=== PATIENT | male | born 1950 | race Caucasian/White ===

== ENCOUNTER 2019-04-24 10:54 | Emergency (ER) | payer MEDICARE, BC ==
[2019-04-24 11:20] VITALS: BP 134/90; PULSE 72
--- NOTE | 2019-04-24 11:43 | EDM.PDOC ---
ED HPI GENERAL MEDICAL PROBLEM - General Chief Complaint: Cardiovascular Problem Stated Complaint: CHEST PAIN Time Seen by Provider: 04/24/19 11:18 Source of Information: Reports: Patient History Limitations: Reports: No Limitations - History of Present Illness INITIAL COMMENTS - FREE TEXT/NARRATIVE: 68 yo male presents to ER with palpitations. He does have hx of afib. 2-3 times per day for ~2-5 minutes he develops a fluttery heavy sensation in his chest. one time last week his daughter listened to his heart and it was irregular. He did take his pulse at that time and it was 165. He denies lightheadedness, nausea or SOB during these events. These events usually occur after he is resting post increase activity. He does take 81 mg asa daily. Denies fever, chills, or headache. - Related Data Allergies Allergy/AdvReac Type Severity Reaction Status Date / Time No Known Allergies Allergy Verified 04/24/19 11:16 Home Meds: Home Meds Aspirin [Ecotrin] 81 mg PO DAILY 04/02/16 [History] Simvastatin 20 mg PO BEDTIME 04/02/16 [History] diphenhydrAMINE HCl [Diphenhydramine HCl] 25 mg PO BEDTIME 04/02/16 [History] Ascorbic Acid [Vitamin C] 500 mg PO DAILY 04/06/16 [History] Omeprazole Magnesium [Prilosec Otc] 20 mg PO BEDTIME 04/24/19 [History] Past Medical History HEENT History: Reports: Impaired Vision Cardiovascular History: Reports: Afib, High Cholesterol - Infectious Disease History Infectious Disease History: Reports: Chicken Pox, Measles - Past Surgical History GI Surgical History: Reports: Colonoscopy, Hernia, Inguinal, Polypectomy Musculoskeletal Surgical History: Reports: Shoulder Surgery Social & Family History - Tobacco Use Smoking Status *Q: Never Smoker - Caffeine Use Caffeine Use: Reports: Coffee - Recreational Drug Use Recreational Drug Use: No ED ROS GENERAL - Review of Systems Review Of Systems: See Below Constitutional: Denies: Fever, Chills, Fatigue HEENT: Denies: Sinus Problem Respiratory: Denies: Shortness of Breath, Wheezing Cardiovascular: Reports: Palpitations. Denies: Chest Pain GI/Abdominal: Denies: Abdominal Pain Skin: Denies: Rash Neurological: Denies: Confusion, Dizziness, Headache ED EXAM, GENERAL - Physical Exam Exam: See Below Exam Limited By: No Limitations General Appearance: Alert, WD/WN, No Apparent Distress Head: Atraumatic, Normocephalic Neck: Normal Inspection, Supple, Non-Tender, Full Range of Motion. No: Lymphadenopathy (R), Lymphadenopathy (L) Respiratory/Chest: No Respiratory Distress, Lungs Clear, Normal Breath Sounds, No Accessory Muscle Use, Chest Non-Tender. No: Crackles, Rhonchi, Wheezing Cardiovascular: Normal Peripheral Pulses, Regular Rate, Rhythm, No Edema, No Gallop, No Murmur, No Rub GI/Abdominal: Normal Bowel Sounds, Soft, Non-Tender, No Organomegaly Neurological: Alert, Oriented Psychiatric: Normal Affect, Normal Mood Skin Exam: Warm, Dry, Intact, No Rash Course - Vital Signs Last Recorded V/S: Last Vital Signs Temp 36.4 C 04/24/19 11:21 Pulse 72 04/24/19 11:21 Resp 10 L 04/24/19 11:21 BP 134/90 04/24/19 11:21 Pulse Ox 96 04/24/19 11:21 - Orders/Labs/Meds Labs: Laboratory Tests 04/24/19 04/24/19 04/24/19 Range/Units 11:42 11:42 11:42 WBC 4.4 L (4.5-11.0) K/uL RBC 4.78 (4.30-5.90) M/uL Hgb 15.1 H (12.0-15.0) g/dL Hct 45.9 (40.0-54.0) % MCV 96 (80-98) fL MCH 32 H (27-31) pg MCHC 33 (32-36) % Plt Count 218 (150-400) K/uL Neut % (Auto) 55 (36-66) % Lymph % (Auto) 31 (24-44) % [place] % (Auto) 12 H (2-6) % Eos % (Auto) 2 (2-4) % Baso % (Auto) 1 (0-1) % Sodium 140 (140-148) mmol/L Potassium 4.0 (3.6-5.2) mmol/L Chloride 105 (100-108) mmol/L Carbon Dioxide 25 (21-32) mmol/L Anion Gap 9.8 (5.0-14.0) mmol/L BUN 15 (7-18) mg/dL Creatinine 0.8 (0.8-1.3) mg/dL Est Cr Clr Drug Dosing 96.74 mL/min Estimated GFR (MDRD) > 60 (>60) Glucose 103 (74-106) mg/dL Calcium 8.5 (8.5-10.1) mg/dL Total Bilirubin 0.2 (0.2-1.0) mg/dL AST 16 (15-37) U/L ALT 30 (12-78) U/L Alkaline Phosphatase 59 (46-116) U/L Troponin I 0.024 (0.000-0.056) ng/mL Total Protein 6.8 (6.4-8.2) g/dL Albumin 3.5 (3.4-5.0) g/dL Globulin 3.3 (2.3-3.5) g/dL Albumin/Globulin Ratio 1.1 L (1.2-2.2) TSH, Ultra Sensitive 2.489 (0.358-3.740) uIU/mL - Re-Assessments/Exams Free Text/Narrative Re-Assessment/Exam: 04/24/19 12:53 mildly elevated HGB could be indicative of mild dehydration all other labs normal. Discussed that these episodes are more then likely brief afib episodes and will start a rate control medication. He is to follow-up with his primary care provider for rhythm monitoring Departure - Departure Time of Disposition: 12:43 Disposition: Home, Self-Care 01 Condition: Good Clinical Impression: Atrial fibrillation Qualifiers: Atrial fibrillation type: paroxysmal Qualified Code(s): I48.0 - Paroxysmal atrial fibrillation Instructions: Atrial Fibrillation, [id number] Referrals: Donaldo Rodriguez PA [Primary Care Provider] - Forms: ED Department Discharge Additional Instructions: Increase daily dose of aspirin to 325 mg start rhythm control medication fo Metoprol daily during the initiation of this medication it is very important that you maintain good hydration with drinking 1.5 liters of fluid daily follow-up with your primary care provider this week
== END 2019-04-24 13:04 | disposition home or self-care (01) ==
LOC: JP.ED 10:54
DX: I48.0 Paroxysmal atrial fibrillation (principal); Z79.82 Long term (current) use of aspirin; Z79.899 Other long term (current) drug therapy
CPT/HCPCS: 36415; 80053; 84443; 84484; 85025; 99284

== ENCOUNTER 2021-03-24 09:09 | Emergency (ER) | payer MEDICARE, BC ==
--- NOTE | 2021-03-24 09:56 | EDM.PDOC ---
ED HPI GENERAL MEDICAL PROBLEM - General Chief Complaint: General Stated Complaint: HEAVY CHEST Time Seen by Provider: 03/24/21 09:47 Source of Information: Reports: Patient, RN Notes Reviewed History Limitations: Reports: No Limitations - History of Present Illness INITIAL COMMENTS - FREE TEXT/NARRATIVE: 70-year-old gentleman presents emergency department day complaint of chest heaviness, he states is been ongoing for the last month or so he has noticed an increase in frequency couple times per day describes some heaviness in the center of his chest with some shortness of breath no nausea no diaphoresis he has no known cardiac disease he has a very remote history of tobacco use underwent stress test November 2019 exercise and myocardial perfusion which showed no abnormality. He states he is chest pain-free at this time did have a bout of chest heaviness yesterday. Denies Pain Score (Numeric/FACES): 0 - Related Data Allergies Allergy/AdvReac Type Severity Reaction Status Date / Time No Known Allergies Allergy Verified 03/24/21 09:42 Home Meds: Home Meds Aspirin [Ecotrin] 325 mg PO DAILY 04/02/16 [History] Simvastatin 20 mg PO BEDTIME 04/02/16 [History] Ascorbic Acid [Vitamin C] 2 tab PO DAILY 04/06/16 [History] Metoprolol Succinate 1 tab PO DAILY 11/10/19 [History] traZODone HCl [Trazodone HCl] 1 tab PO BEDTIME PRN 11/10/19 [History] Past Medical History HEENT History: Reports: Impaired Vision Cardiovascular History: Reports: Afib (Paroxysmal), High Cholesterol Oncologic (Cancer) History: Reports: Other (See Below) Other Oncologic History: skin CA - Infectious Disease History Infectious Disease History: Reports: Chicken Pox, Measles - Past Surgical History GI Surgical History: Reports: Colonoscopy, Hernia, Inguinal, Polypectomy Musculoskeletal Surgical History: Reports: Shoulder Surgery Dermatological Surgical History: Reports: Skin Biopsy Social & Family History - Tobacco Use Tobacco Use Status *Q: Never Tobacco User Second Hand Smoke Exposure: No - Caffeine Use Caffeine Use: Reports: Coffee, Soda - Alcohol Use Days Per Week of Alcohol Use: 0 - Recreational Drug Use Recreational Drug Use: Yes ED ROS GENERAL - Review of Systems Review Of Systems: See Below Constitutional: Reports: No Symptoms HEENT: Reports: No Symptoms Respiratory: Reports: Shortness of Breath Cardiovascular: Reports: Chest Pain GI/Abdominal: Reports: No Symptoms ED EXAM, GENERAL - Physical Exam Exam: See Below Exam Limited By: No Limitations General Appearance: Alert, WD/WN, No Apparent Distress Respiratory/Chest: No Respiratory Distress, Lungs Clear, Normal Breath Sounds, No Accessory Muscle Use, Chest Non-Tender Cardiovascular: Regular Rate, Rhythm, No Murmur GI/Abdominal: Soft, Non-Tender Extremities: No Pedal Edema #2 Interpretation EKG Date: 03/24/21 Time: 09:56 Rhythm: NSR [place]: Normal P-Wave: Present QRS: RBBB ST-T: Normal QT: Normal Comparison: No Change Course - Vital Signs Last Recorded V/S: Last Vital Signs Temp 98.2 F 03/24/21 09:47 Pulse 55 L 03/24/21 09:47 Resp 16 03/24/21 09:47 BP 115/73 03/24/21 09:47 Pulse Ox 96 03/24/21 09:47 - Orders/Labs/Meds Orders: Active Orders 24 hr Category Date Time Status Cardiac Monitoring [RC] .As Directed Care 03/24/21 10:26 Active EKG Documentation Completion [RC] ASDIRECTED Care 03/24/21 10:27 Active EKG 12 Lead [EK] Stat Ther 03/24/21 10:27 Ordered Labs: Laboratory Tests 03/24/21 03/24/21 Range/Units 10:37 10:37 WBC 3.4 L (4.5-11.0) K/uL RBC 4.49 (4.30-5.90) M/uL Hgb 14.7 (12.0-15.0) g/dL Hct 43.5 (40.0-54.0) % MCV 97 (80-98) fL MCH 33 H (27-31) pg MCHC 34 (32-36) % Plt Count 208 (150-400) K/uL Neut % (Auto) 56.8 (36-66) % Lymph % (Auto) 27.5 (24-44) % [place] % (Auto) 11.8 H (2-6) % Eos % (Auto) 2.4 (2-4) % Baso % (Auto) 1.5 H (0-1) % Sodium 138 L (140-148) mmol/L Potassium 4.4 (3.6-5.2) mmol/L Chloride 103 (100-108) mmol/L Carbon Dioxide 26 (21-32) mmol/L Anion Gap 13.4 (5.0-14.0) mmol/L BUN 19 H (7-18) mg/dL Creatinine 1.0 (0.8-1.3) mg/dL Est Cr Clr Drug Dosing 75.30 mL/min Estimated GFR (MDRD) > 60 (>60) Glucose 99 (74-106) mg/dL Calcium 8.6 (8.5-10.1) mg/dL Total Bilirubin 0.3 (0.2-1.0) mg/dL AST 18 (15-37) U/L ALT 33 (12-78) U/L Alkaline Phosphatase 59 (46-116) U/L Troponin I < 0.017 (0.000-0.056) ng/mL Total Protein 6.4 (6.4-8.2) g/dL Albumin 3.5 (3.4-5.0) g/dL Globulin 2.9 (2.3-3.5) g/dL Albumin/Globulin Ratio 1.2 (1.2-2.2) Departure - Departure Time of Disposition: 11:53 Disposition: Home, Self-Care 01 Condition: Fair Clinical Impression: Atypical chest pain - Discharge Information Instructions: Nonspecific Chest Pain, Adult, [id number] Referrals: Ashlie Zamudio MD [Primary Care Provider] - Forms: ED Department Discharge Additional Instructions: Please follow-up with your primary care provider in the next 3 to 5 days for reevaluation, call return to the emergency department worsening of symptoms Sepsis Event Note (ED) - Evaluation Sepsis Screening Result: No Definite Risk - Focused Exam Vital Signs: Vital Signs Temp Pulse Resp BP Pulse Ox 03/24/21 09:47 98.2 F 55 L 16 115/73 96 03/24/21 09:38 98.2 F 55 L 16 115/73 96 - My Orders Last 24 Hours: My Active Orders 03/24/21 10:26 Cardiac Monitoring [RC] .As Directed 03/24/21 10:27 EKG Documentation Completion [RC] ASDIRECTED EKG 12 Lead [EK] Stat - Assessment/Plan Last 24 Hours: My Active Orders 03/24/21 10:26 Cardiac Monitoring [RC] .As Directed 03/24/21 10:27 EKG Documentation Completion [RC] ASDIRECTED EKG 12 Lead [EK] Stat Plan: Assessment Acuity = acute Site and laterality = atypical chest pain Etiology = unknown Manifestations = none Location of injury = Home Lab values = CBC, CMP, troponin all within normal limits EKG demonstrates a right bundle branch block however this is unchanged from prior EKG chest x-ray shows no acute process Plan I did discuss with results with him as well as discussed his recent stress test that he had November 2019 which was unremarkable. I have asked him to follow-up with his primary care at which time to review the results and then decide whether a visit cardiology would be more beneficial or repeat stress test would be more beneficial This note was dictated using [employer] voice recognition software please call with any questions on syntax or grammar.
--- NOTE | 2021-03-24 11:49 | CR ---
CHEST: 2 view CLINICAL HISTORY:Chest pain COMPARISON:None FINDINGS: The heart size, pulmonary vascularity and hilar structures are normal. No infiltrate effusion or pneumothorax is seen. IMPRESSION: No acute cardiopulmonary process.
[2021-03-24 12:24] VITALS: BP 123/74; PULSE 51
== END 2021-03-24 12:24 | disposition home or self-care (01) ==
LOC: JP.ED 09:09
DX: R07.89 Other chest pain (principal); I48.91 Unspecified atrial fibrillation; E78.00 Pure hypercholesterolemia, unspecified; Z79.82 Long term (current) use of aspirin; Z79.899 Other long term (current) drug therapy
CPT/HCPCS: 36415; 71046; 71046-26; 80053; 84484; 85025; 93005; 99285-25

== ENCOUNTER 2021-06-26 05:18 | Emergency (ER) | payer MEDICARE, BC ==
--- NOTE | 2021-06-26 05:53 | EDM.PDOC ---
ED HPI GENERAL MEDICAL PROBLEM - General Chief Complaint: Cardiovascular Problem Stated Complaint: A-FIB Time Seen by Provider: 06/26/21 05:42 Source of Information: Reports: Patient, Old Records, RN Notes Reviewed History Limitations: Reports: No Limitations - History of Present Illness INITIAL COMMENTS - FREE TEXT/NARRATIVE: 70-year-old gentleman presents emergency department with a complaint of palpitations, he has known history of atrial fibrillation and has had for several years has been in the ER a couple of times with this problem. Was in the emergency department in [place] received an extra dose of metoprolol symptoms resolved. That was yesterday. Today this morning started having palpitations again. He did take a single dose of metoprolol and then took 1 extra dose prior to my evaluation. No chest pain nausea vomiting shortness of breath Generalized Pain Score (Numeric/FACES): 0 - Related Data Allergies Allergy/AdvReac Type Severity Reaction Status Date / Time No Known Allergies Allergy Verified 03/24/21 09:42 Home Meds: Home Meds Aspirin [Ecotrin] 325 mg PO DAILY 04/02/16 [History] Simvastatin 20 mg PO BEDTIME 04/02/16 [History] Ascorbic Acid [Vitamin C] 2 tab PO DAILY 04/06/16 [History] Metoprolol Succinate 1 tab PO BID 11/10/19 [History] traZODone HCl [Trazodone HCl] 1 tab PO BEDTIME PRN 11/10/19 [History] Past Medical History HEENT History: Reports: Impaired Vision Cardiovascular History: Reports: Afib, High Cholesterol Oncologic (Cancer) History: Reports: Other (See Below) Other Oncologic History: skin CA - Infectious Disease History Infectious Disease History: Reports: Chicken Pox, Measles - Past Surgical History GI Surgical History: Reports: Colonoscopy, Hernia, Inguinal, Polypectomy Musculoskeletal Surgical History: Reports: Shoulder Surgery Dermatological Surgical History: Reports: Skin Biopsy Social & Family History - Family History Family Medical History: No Pertinent Family History - Tobacco Use Tobacco Use Status *Q: Former Tobacco User Used Tobacco, but Quit: Yes Month/Year Tobacco Last Used: 30 years ago - Caffeine Use Caffeine Use: Reports: None - Recreational Drug Use Recreational Drug Use: No ED ROS GENERAL - Review of Systems Review Of Systems: See Below Constitutional: Reports: No Symptoms HEENT: Reports: No Symptoms Respiratory: Reports: No Symptoms Cardiovascular: Reports: Palpitations GI/Abdominal: Reports: No Symptoms ED EXAM, GENERAL - Physical Exam Exam: See Below Exam Limited By: No Limitations General Appearance: Alert, WD/WN, No Apparent Distress Respiratory/Chest: No Respiratory Distress, Lungs Clear, Normal Breath Sounds, No Accessory Muscle Use, Chest Non-Tender Cardiovascular: No Murmur, Irregularly Irregular GI/Abdominal: Soft, Non-Tender #1 Interpretation EKG Date: 06/26/21 Time: 05:52 Rhythm: A-Fib P-Wave: Absent QRS: RBBB ST-T: Normal QT: Normal Comparison: Change From Previous EKG Course - Vital Signs Last Recorded V/S: Last Vital Signs Temp 97.7 F 06/26/21 05:23 Pulse 77 06/26/21 06:23 Resp 16 06/26/21 06:23 BP 104/69 06/26/21 06:23 Pulse Ox 95 06/26/21 06:23 - Orders/Labs/Meds Orders: Active Orders 24 hr Category Date Time Status Cardiac Monitoring [RC] .As Directed Care 06/26/21 05:49 Active EKG 12 Lead [EK] Stat Ther 06/26/21 05:49 Ordered Labs: Laboratory Tests 06/26/21 06/26/21 Range/Units 06:01 06:01 WBC 4.6 (4.5-11.0) K/uL RBC 4.64 (4.30-5.90) M/uL Hgb 15.0 (12.0-15.0) g/dL Hct 44.6 (40.0-54.0) % MCV 96 (80-98) fL MCH 32 H (27-31) pg MCHC 34 (32-36) % Plt Count 197 (150-400) K/uL Neut % (Auto) 60.7 (36-66) % Lymph % (Auto) 23.0 L (24-44) % [place] % (Auto) 13.6 H (2-6) % Eos % (Auto) 1.8 L (2-4) % Baso % (Auto) 0.9 (0-1) % Sodium 136 L (140-148) mmol/L Potassium 4.0 (3.6-5.2) mmol/L Chloride 102 (100-108) mmol/L Carbon Dioxide 27 (21-32) mmol/L Anion Gap 11.0 (5.0-14.0) mmol/L BUN 20 H (7-18) mg/dL Creatinine 1.0 (0.8-1.3) mg/dL Est Cr Clr Drug Dosing 75.30 mL/min Estimated GFR (MDRD) > 60 (>60) Glucose 108 H (74-106) mg/dL Calcium 8.9 (8.5-10.1) mg/dL Troponin I < 0.017 (0.000-0.056) ng/mL Departure - Departure Time of Disposition: 06:35 Disposition: Home, Self-Care 01 Condition: Fair Clinical Impression: Rate controlled atrial fibrillation Instructions: Atrial Fibrillation, [id number] Referrals: PCP,None [Primary Care Provider] - Forms: ED Department Discharge Additional Instructions: Continue on your metoprolol 25 mg twice a day if the palpitations return go ahead and take an extra 25 mg please keep your follow-up appointment with cardiology call or return to the emergency department worsening of symptoms Sepsis Event Note (ED) - Evaluation Sepsis Screening Result: No Definite Risk - Focused Exam Vital Signs: Vital Signs Temp Pulse Resp BP Pulse Ox 06/26/21 06:23 77 16 104/69 95 06/26/21 05:53 77 11 L 105/69 94 L 06/26/21 05:23 97.7 F 82 18 118/71 95 - My Orders Last 24 Hours: My Active Orders 06/26/21 05:49 Cardiac Monitoring [RC] .As Directed EKG 12 Lead [EK] Stat - Assessment/Plan Last 24 Hours: My Active Orders 06/26/21 05:49 Cardiac Monitoring [RC] .As Directed EKG 12 Lead [EK] Stat Plan: Assessment Acuity = acute Site and laterality = persistent atrial fibrillation Etiology = unknown Manifestations = palpitations Location of injury = Home Lab values = CBC BMP and troponin all negative EKG demonstrates atrial fibrillation Plan His chads vas score is 1 he is currently on aspirin he does have a follow-up appointment with cardiology on the of this month recommend he use his additional metoprolol as needed he is going to be 25 mg p.o. twice daily but if need be he can take an additional 25 mg This note was dictated using [employer] voice recognition software please call with any questions on syntax or grammar.
[2021-06-26 06:33] VITALS: PULSE 77
[2021-06-26 06:34] VITALS: BP 104/69
== END 2021-06-26 06:39 | disposition home or self-care (01) ==
LOC: JP.ED 05:18
DX: I48.91 Unspecified atrial fibrillation (principal); E78.00 Pure hypercholesterolemia, unspecified; I45.10 Unspecified right bundle-branch block; Z87.891 Personal history of nicotine dependence; Z79.82 Long term (current) use of aspirin; Z79.899 Other long term (current) drug therapy
CPT/HCPCS: 36415; 80048; 84484; 85025; 93005; 99285-25

== ENCOUNTER 2021-06-27 12:17 | Emergency (ER) | payer MEDICARE, BC ==
[2021-06-27 12:44] VITALS: BP 121/76; PULSE 76
--- NOTE | 2021-06-27 13:04 | EDM.PDOC ---
ED HPI GENERAL MEDICAL PROBLEM - General Chief Complaint: Cardiovascular Problem Stated Complaint: ATRO FIB Time Seen by Provider: 06/27/21 12:45 Source of Information: Reports: Patient History Limitations: Reports: No Limitations - History of Present Illness INITIAL COMMENTS - FREE TEXT/NARRATIVE: 70-year-old male who has ongoing atrial for flutter for the past several weeks, had a 1 to 2-minute stretch of jaw pain this morning which worried him because he was told that if that happens he should come in and get rechecked. The jaw pain only lasted a couple minutes, it is gone now he feels fine. He did not have shortness of breath or chest pain. He took an extra metoprolol. He has a follow-up appointment with his primary later this afternoon, and appointment with cardiology next week. His final inspector shuttle has only recommended full dose aspirin so far for anticoagulation. Onset: Sudden (Jaw pain came on suddenly about 2 and half hours ago but only lasted 2 minutes) Associated Symptoms: Reports: No Other Symptoms, Other (No palpitations). Denies: Loss of Appetite, Malaise, Nausea/Vomiting, Shortness of Breath - Related Data Allergies Allergy/AdvReac Type Severity Reaction Status Date / Time No Known Allergies Allergy Verified 06/27/21 12:30 Home Meds: Home Meds Aspirin [Ecotrin] 325 mg PO DAILY 04/02/16 [History] Simvastatin 20 mg PO BEDTIME 04/02/16 [History] Ascorbic Acid [Vitamin C] 2 tab PO DAILY 04/06/16 [History] Metoprolol Succinate 1 tab PO BID 11/10/19 [History] traZODone HCl [Trazodone HCl] 1 tab PO BEDTIME PRN 11/10/19 [History] Past Medical History HEENT History: Reports: Impaired Vision Cardiovascular History: Reports: Afib, High Cholesterol Gastrointestinal History: Reports: None Musculoskeletal History: Reports: None Oncologic (Cancer) History: Reports: Other (See Below) Other Oncologic History: skin CA Dermatologic History: Reports: None - Infectious Disease History Infectious Disease History: Reports: Chicken Pox, Measles - Past Surgical History Head Surgeries/Procedures: Reports: None HEENT Surgical History: Reports: None Cardiovascular Surgical History: Reports: None GI Surgical History: Reports: Colonoscopy, Hernia, Inguinal, Polypectomy Musculoskeletal Surgical History: Reports: Shoulder Surgery Oncologic Surgical History: Reports: None Dermatological Surgical History: Reports: Skin Biopsy Social & Family History - Family History Family Medical History: No Pertinent Family History - Tobacco Use Tobacco Use Status *Q: Never Tobacco User - Caffeine Use Caffeine Use: Reports: None - Recreational Drug Use Recreational Drug Use: No ED ROS GENERAL - Review of Systems Review Of Systems: See Below Constitutional: Denies: Fever, Chills, Malaise HEENT: Reports: Other (Diffuse jaw pain that lasted 1 to 2 minutes) Respiratory: Denies: Shortness of Breath Cardiovascular: Denies: Chest Pain GI/Abdominal: Reports: No Symptoms : Reports: No Symptoms Musculoskeletal: Reports: No Symptoms Skin: Reports: No Symptoms Neurological: Reports: No Symptoms Psychiatric: Reports: No Symptoms ED EXAM, GENERAL - Physical Exam Exam: See Below Exam Limited By: No Limitations General Appearance: Alert, No Apparent Distress Eye Exam: Bilateral Eye: Normal Inspection Head: Atraumatic, Other (I cannot reproduce pain to the jaw with palpation) Neck: Supple, Non-Tender Respiratory/Chest: Lungs Clear Cardiovascular: Regular Rate, Rhythm GI/Abdominal: Soft, Non-Tender Extremities: Normal Inspection. No: Pedal Edema Neurological: Alert, Oriented Psychiatric: Normal Affect, Normal Mood #1 Interpretation EKG Date: 06/27/21 Rhythm: A-Flutter Rate (Beats/Min): 75 QRS: Normal EKG Interpretation Comments: 4:1 atrial flutter with a ventricular rate of 75. This is consistent with his EKG done yesterday. Course - Vital Signs Last Recorded V/S: Last Vital Signs Temp 97.9 F 06/27/21 12:44 Pulse 76 06/27/21 12:44 Resp 14 06/27/21 12:44 BP 121/76 06/27/21 12:44 Pulse Ox 95 06/27/21 12:44 - Orders/Labs/Meds Labs: Laboratory Tests 06/27/21 Range/Units 12:57 Troponin I < 0.017 (0.000-0.056) ng/mL - Re-Assessments/Exams Free Text/Narrative Re-Assessment/Exam: 06/27/21 13:38 Patient remained asymptomatic in the emergency room, EKG showed atrial flutter and troponin was 0. He was discharged to keep his appointment with his primary care provider and will walk directly over the clinic to see Ashlie Marmolejo. Departure - Departure Time of Disposition: 13:47 Disposition: Home, Self-Care 01 Clinical Impression: Atrial flutter Qualifiers: Atrial flutter type: typical Qualified Code(s): I48.3 - Typical atrial flutter Instructions: Atrial Flutter Referrals: Ashlie Zamudio MD [Primary Care Provider] - Forms: ED Department Discharge Care Plan Goals: Go directly over the clinic to discuss further treatment options and follow-up with your primary provider as scheduled. Sepsis Event Note (ED) - Focused Exam Vital Signs: Vital Signs Temp Pulse Resp BP Pulse Ox 06/27/21 12:44 97.9 F 76 14 121/76 95 06/27/21 12:43 97.9 F 76 14 121/76 95
== END 2021-06-27 13:47 | disposition home or self-care (01) ==
LOC: JP.ED 12:17
DX: I48.3 Typical atrial flutter (principal); E78.00 Pure hypercholesterolemia, unspecified; Z79.899 Other long term (current) drug therapy; Z79.82 Long term (current) use of aspirin
CPT/HCPCS: 36415; 84484; 99285-25

== ENCOUNTER 2025-09-12 06:29 | Day surgery (SDC) | payer MEDICARE, BC ==
[2025-09-12 06:53] LABS: PLATELET COUNT,PLT 208.0 K/uL (130-375); RED BLOOD CELL COUNT 4.74 M/uL (4.14-5.76); WHITE BLOOD CELL COUNT,WBC 6.1 K/uL (3.2-11.0)
[2025-09-12 07:09] LABS: BLOOD UREA NITROGEN,BUN 21.0 mg/dL (7-18); CARBON DIOXIDE,CO2 28.0 mmol/L (21-32); CHLORIDE,CL 102.0 mmol/L (100-108); CREATININE 1.0 mg/dL (0.8-1.3); EST CRCL DRUG DOSING (CG) 70.07 mL/min; ESTIMATED GFR 79.0 mL/min (>60); GLUCOSE RANDOM 97.0 mg/dL (74-106); POTASSIUM,K 4.1 mmol/L (3.6-5.2); SODIUM,NA 139.0 mmol/L (140-148)
[2025-09-12] MEDS ORDERED: Propofol 200 MG/20 ML SDV ONE (07:20)
[2025-09-12] MEDS ORDERED: Succinylcholine 200 MG/10 ML MDV ONE (07:20)
[2025-09-12] MEDS ORDERED: fentaNYL 250 MCG/5 ML SDV ONE (07:20)
[2025-09-12] MEDS ORDERED: Dexamethasone 4 MG/ML SDV ONE (07:20)
[2025-09-12] MEDS ORDERED: Ondansetron 4 MG/2 ML SDV ONE (07:20)
[2025-09-12] MEDS ORDERED: Glycopyrrolate 0.2 MG/ML 5 ML MDV ONE (07:20)
[2025-09-12] MEDS: Lactated Ringers 1,000 ML IV SCH (07:25)
[2025-09-12] MEDS: metroNIDAZOLE/Normal Saline 500 MG in Premix Bag 1 BAG IV ONE (08:00)
[2025-09-12] MEDS ORDERED: Ketorolac 30 MG/ML SDV ONE (08:39)
[2025-09-12] MEDS ORDERED: Lactated Ringers 1,000 ML ONE (08:47)
[2025-09-12] MEDS: Acetaminophen/HYDROcodone 325-5 MG Tab PO ONE (10:43)
[2025-09-12 11:55] VITALS: BP 123/66; PULSE 77
== END 2025-09-12 11:55 | disposition home or self-care (01) ==
LOC: JP.SDS 06:29
PROVIDERS: ATTEND Surgery
DX: K40.31 Unilateral inguinal hernia, with obstruction, without gangrene, recurrent (principal); I10 Essential (primary) hypertension; I25.110 Atherosclerotic heart disease of native coronary artery with unstable angina pectoris; E78.5 Hyperlipidemia, unspecified; G47.33 Obstructive sleep apnea (adult) (pediatric); E66.811 Obesity, class 1; Z68.32 Body mass index [BMI] 32.0-32.9, adult; Z87.891 Personal history of nicotine dependence; Z79.899 Other long term (current) drug therapy
CPT/HCPCS: 00840-QZ; 36415; 80048; 85027; A9270-GY; C1781; J0169; J0330; J0665; J0690; J1100; J1596; J1836; J1885; J2405; J2704; J2710; J2795; J3010; J3490; J7120